=== PATIENT | male | born 1955 | race Native Hawaiian/Other Pacific Islander ===

== ENCOUNTER 2017-07-23 13:36 | Outpatient (CLI) | payer OTHER | END 2017-07-23 14:01 | disposition short-term general hospital (02) | LOC: AMB 13:36 | DX: M79.605 Pain in left leg (principal); M79.604 Pain in right leg; M25.551 Pain in right hip; W18.39XA Other fall on same level, initial encounter; Y92.098 Other place in other non-institutional residence as the place of occurrence of the external cause | CPT/HCPCS: A0425; A0429 ==

== ENCOUNTER 2018-08-18 15:00 | Outpatient (CLI) | payer OTHER | END 2018-08-18 15:20 | disposition short-term general hospital (02) | LOC: AMB 15:00 | DX: M25.552 Pain in left hip (principal); Z91.81 History of falling | CPT/HCPCS: A0425; A0427 ==

== ENCOUNTER 2018-08-18 15:22 | Emergency (ER) | payer OTHER ==
[~2018-08-18] VITALS: Ht 167.6 cm; Wt 44.5 kg
[2018-08-18 17:46] LABS: PLATELET COUNT 240 K/uL (142-355)
[2018-08-18 17:54] LABS: PARTIAL THROMBOPLASTIN TIME 24.7 SECONDS (24.5-33.6)
[2018-08-18 18:30] LABS: POTASSIUM 4.8 mmol/L (3.6-5.2); SODIUM 139 mmol/L (136-145)
[2018-08-18 21:56] VITALS: BP 139/74; TEMP 97.4
== END 2018-08-18 22:15 | disposition short-term general hospital (02) ==
LOC: ED 15:22
PROVIDERS: Emergency Medicine
DX: S72.145A Nondisplaced intertrochanteric fracture of left femur, initial encounter for closed fracture (principal); R53.1 Weakness; W01.198A Fall on same level from slipping, tripping and stumbling with subsequent striking against other object, initial encounter; Y92.098 Other place in other non-institutional residence as the place of occurrence of the external cause
CPT/HCPCS: 80053; 82550; 82553; 84484; 85027; 85610; 85730; 93005; 96361; 96365; 99284; J1170